=== PATIENT | male | born 1965 | race Caucasian/White ===

== ENCOUNTER 2018-05-27 20:18 | Emergency (ER) | payer OTHER ==
[~2018-05-27] VITALS: Ht 188 cm; Wt 86.2 kg
[2018-05-27 20:38] VITALS: BP 147/102
== END 2018-05-28 01:06 | disposition left against medical advice (07) ==
LOC: ER 20:18
DX: S09.90XA Unspecified injury of head, initial encounter (principal); R22.0 Localized swelling, mass and lump, head; Z53.21 Procedure and treatment not carried out due to patient leaving prior to being seen by health care provider; X58.XXXA Exposure to other specified factors, initial encounter; Y93.89 Activity, other specified; Y99.8 Other external cause status; Y92.89 Other specified places as the place of occurrence of the external cause
CPT/HCPCS: 70450

== ENCOUNTER 2022-03-25 21:49 | Emergency (ER) | payer MEDICAID, OTHER ==
[~2022-03-25] VITALS: Ht 188 cm; Wt 83.9 kg
[2022-03-26] MEDS ORDERED: TETANUS-DIPTH-ACEL PERTUSSIS 0.5ML SYR Tdap IM ONE (08:15)
[2022-03-26] MEDS ORDERED: IBUP800T27 PO (09:25)
[2022-03-26] MEDS ORDERED: CEPH-509 PO (09:25)
[2022-03-26 10:13] VITALS: BP 154/96
== END 2022-03-26 10:54 | disposition home or self-care (01) ==
LOC: ER 21:49
DX: S91.012A Laceration without foreign body, left ankle, initial encounter (principal); I10 Essential (primary) hypertension; Z86.2 Personal history of diseases of the blood and blood-forming organs and certain disorders involving the immune mechanism; Z79.1 Long term (current) use of non-steroidal anti-inflammatories (NSAID); Z79.899 Other long term (current) drug therapy; W26.8XXA Contact with other sharp object(s), not elsewhere classified, initial encounter; Y93.89 Activity, other specified; Y99.8 Other external cause status
CPT/HCPCS: 12002; 73610; 73630; 90471; 90715; 99284; J2001